=== PATIENT | female | born 1990 | race African-American/Black ===

== ENCOUNTER 2017-08-30 10:26 | Emergency (ER) | payer SELFPAY ==
[~2017-08-30] VITALS: Ht 167.6 cm; Wt 70.0 kg
[2017-08-30 10:39] VITALS: BP 133/84; PULSE 93; RESP 18; TEMP 98.3; O2SAT 100
[2017-08-30] MEDS ORDERED: LIDOCAINE HCL 1% 50 ML VIAL INFIL ONE (11:15)
[2017-08-30] MEDS ORDERED: IBUP-232 PO (12:43)
--- NOTE | 2017-08-30 12:44 | PD ---
HPI Chief Complaint: Skin Problem Time Seen by Provider: 11:10 Travel History International Travel<30 days: No Contact w/Intl Traveler<30days: No Traveled to known affect area: No History of Present Illness HPI 26-year-old female patient presents to the ER today with 3 days history of swelling to her right labia majora getting worse in the past day. She has been feeling poorly, subjective fevers, denies any vomiting or any other symptoms. She states the pain is a 10 out of 10 when she sits on it. Modifying Factors: None Associated Signs & Symptoms: Right labia majora swelling, pain Risk Factors: None PFSH Past Medical History Medical History: Denies Significant Hx Influenza Vaccination: No ?: Not LMP: EARLY AUGUST Past Surgical History Surgical History: No Previous Surgery Social History Alcohol Use: Yes (OCCAS) Tobacco Use: Yes Substance Use: No Allergies-Medications (Allergen,Severity, Reaction): Uncoded Allergies: MEDICATION FOR SCALP LESIONS (Allergy, Intermediate, 08/30/17) HAIR FELL OUT; Reported Meds & Prescriptions Reported Meds & Active Scripts Active No Active Prescriptions or Reported Medications Review of Systems Except as stated in HPI: all other systems reviewed are Neg Physical Exam Narrative GENERAL: Well-developed young after [place] female patient currently in mild distress. Awake and oriented 3. SKIN: Focused skin assessment warm/dry. HEAD: Atraumatic. Normocephalic. EYES: Pupils equal and round. No scleral icterus. No injection or drainage. ENT: No nasal bleeding or discharge. Mucous membranes pink and moist. NECK: Trachea midline. No JVD. CARDIOVASCULAR: Regular rate and rhythm. No murmur appreciated. RESPIRATORY: No accessory muscle use. Clear to auscultation. Breath sounds equal bilaterally. GASTROINTESTINAL: Abdomen soft, non-tender, nondistended. Hepatic and splenic margins not palpable. GENITOURINARY: Normal external genitalia notable right labia majora edema, tenderness, fluctuance area measuring 2 x 4 cm. MUSCULOSKELETAL: No obvious deformities. No clubbing. No cyanosis. No edema. NEUROLOGICAL: Awake and alert. No obvious cranial nerve deficits. Motor grossly within normal limits. Normal speech. PSYCHIATRIC: Appropriate mood and affect; insight and judgment normal. Data Data Last Documented VS Vital Signs Date Time Temp Pulse Resp B/P (MAP) Pulse Ox O2 Delivery O2 Flow Rate FiO2 08/30/17 10:39 98.3 93 18 133/84 (100) 100 Orders Orders Lidocaine 1% Inj (50 Ml) (Xylocaine 1% I (08/30/17 11:15) [facility] Medical Decision Making Medical Screen Exam Complete: Yes Emergency Medical Condition: Yes Medical Record Reviewed: Yes Differential Diagnosis Abscess versus cellulitis versus allergic reaction versus Bartholin's gland cyst Narrative Course I&D was done in the ER with copious pus drainage. Wards catheter was placed. Patient will need to get catheter removal by primary care physician or FRONT DESK ADMINISTRATOR next week. Return for any worsening in pain, swelling, fevers, or new symptoms as needed. The plan was discussed with her and she states understanding. Procedures Procedure Narrative INCISION AND DRAINAGE OF ABSCESS: The area was prepped and was sterilely draped. A subcutaneous wheal of % Xylocaine 1% with a total number 3 mL was used to anesthetize the area. The area was properly anesthetized. A number small scalpel was used to make an initial 1 cm incision above the area of induration which drained only a small amount of fluid, a second 1 cm incision was made lower down at area of induration, across the area of the abscess and a large amount of pus was drained. The abscess was drained an irrigated with normal saline. Wards catheter was placed with 2 cc of saline placed. Sterile dressing applied. Wards catheter will need to be removed in 2-3 days. Follow- up Friday with FR[facility] DESK ADMINISTRATOR or primary care doctor. Diagnosis Primary Impression: Abscess of labia majora Referrals: [facility] Med[facility]Other Pt SpecificInfo: Prescription(s) given Scripts Ibuprofen (Ibuprofen) 600 Mg Tab 600 MG PO Q6H Y for Pain/Inflammation, #20 TAB 0 Refills Prov: Ruben Sadler MD 08/30/17 Disposition: 01 DISCHARGE HOME Condition: Stable Ruben Sadler MD Aug 30, 2017 12:44
== END 2017-08-30 13:07 | disposition home or self-care (01) ==
LOC: PHED 10:26
DX: N76.4 Abscess of vulva (principal); Z72.0 Tobacco use
CPT/HCPCS: 56405